=== PATIENT | female | born 1965 | race Hispanic/Latino ===

== ENCOUNTER 2023-06-22 10:07 | Observation (INO) | payer OTHER ==
[2023-06-17 18:35] VITALS: BP 131/74; PULSE 83; RESP 18
[~2023-06-22] VITALS: Ht 152.4 cm; Wt 85.0 kg
[~2023-06-22 10:07] MED LIST: CEPH500C2 PO; PIOG15TA66 PO; SILV50CR31 TP; SITA100T12 PO
[2023-06-29] VITALS (27 sets, daily range): BP systolic 110–147; BP diastolic 54–79; PULSE 66–116; RESP 15–20; O2SAT 95
[2023-06-29] MEDS ORDERED: LACTATED RINGERS 1000ML 0 ML IV ONE (05:59)
[2023-06-29] MEDS ORDERED: CEFAZOLIN SODIUM 2 GM VIAL ONE (05:59)
[2023-06-29] MEDS ORDERED: 0.9%NACL 1000ML 1,000 ML IV ONE (06:05)
[2023-06-29] MEDS ORDERED: OMEP40CA21 PO (06:17)
[2023-06-29] MEDS ORDERED: METF-527 PO (06:17)
[2023-06-29] MEDS ORDERED: ACET-66 PO (06:17)
[2023-06-29] MEDS ORDERED: IBUP-2077 PO (06:17)
[2023-06-29] MEDS ORDERED: ATOR40TA71 PO (06:17)
[2023-06-29] MEDS ORDERED: VITAMIN B12 PO (06:17)
[2023-06-29] MEDS ORDERED: GLIM4TAB36 PO (06:17)
[2023-06-29] MEDS ORDERED: 0.9%NACL 100ML 48.45 ML, ROPIVACAINE 0.5% 5MG/ML 30ML 246.25 MG, KETOROLAC TROMETHAMINE... IV PRN ×5 (09:00)
[2023-06-29] MEDS ORDERED: FENTANYL CITRATE PF 50 MCG/1 ML 5ML AMP IV ONE ×3 (10:21→13:10)
[2023-06-29] MEDS ORDERED: SUCCINYLCHOLINE CHLORIDE 20 MG/ML 10 ML VIAL ONE ×2 (10:22→12:49)
[2023-06-29] MEDS ORDERED: LIDOCAINE PF 100MG/5ML (2%) SYRINGE 5ML ONE (10:22)
[2023-06-29] MEDS ORDERED: ROCURONIUM 10MG/1ML SYR 10 MG/ML ML ONE ×2 (10:23→12:17)
[2023-06-29] MEDS ORDERED: ONDANSETRON 4MG INJ ONE (10:23)
[2023-06-29] MEDS ORDERED: PROPOFOL 10 MG/ML 20ML VIAL IV ONE ×2 (10:23→12:08)
[2023-06-29] MEDS ORDERED: DEXAMETHASONE SOD PHOSPHATE 10MG/ML 1ML VIAL ONE (10:23)
[2023-06-29] MEDS ORDERED: NEOSTIGMINE 5MG/5ML SYR IV ONE (10:23)
[2023-06-29] MEDS ORDERED: GLYCOPYRROLATE 1 MG/5 ML SYRINGE ONE (10:23)
[2023-06-29] MEDS ORDERED: CEFAZOLIN SODIUM 2 GM VIAL IVPB ONE ×2 (10:41→11:42)
[2023-06-29] MEDS ORDERED: GENTAMICIN SULFATE 80 MG/2 ML VIAL IM ONE (10:42)
[2023-06-29] MEDS ORDERED: DEXMEDETOMIDINE HCL 200 MCG/2 ML VIAL IV ONE (11:26)
[2023-06-29] MEDS ORDERED: KETAMINE 50MG/ML SYRINGE 50 MG/ML DISP.SYRIN ONE (11:27)
[2023-06-29] MEDS ORDERED: MIDAZOLAM HCL 1 MG/ML 5ML VIAL ONE (11:30)
[2023-06-29] MEDS ORDERED: TRANEXAMIC ACID 1000MG/10ML IV ONE (11:43)
[2023-06-29] MEDS ORDERED: ESMOLOL HCL 10 MG/ML 10 ML VIAL ONE (12:09)
[2023-06-29] MEDS ORDERED: HYDROMORPHONE 1 MG INJ ONE (12:18)
[2023-06-29] MEDS ORDERED: HYDROMORPHONE PCA 10 MG/50 ML 50 ML IV PRN (15:30)
[2023-06-29] MEDS ORDERED: DIPHENOXYLATE HCL/ATROPINE 2.5/0.025 MG TAB PO PRN (15:30)
[2023-06-29] MEDS ORDERED: BENZOCAINE/MENTH/CETYLPYRD CL 1 EACH LOZENGE MM PRN (15:30)
[2023-06-29] MEDS ORDERED: ONDANSETRON 4MG INJ IVP PRN (15:30)
[2023-06-29] MEDS ORDERED: ACETAMINOPHEN 325 MG TAB PO PRN ×2 (15:30)
[2023-06-29] MEDS ORDERED: TRAMADOL HCL 50 MG TABLET PO PRN (15:30)
[2023-06-29] MEDS ORDERED: CEFAZOLIN SODIUM 2 GM VIAL IVPB SCH (15:30)
[2023-06-29] MEDS ORDERED: DiphenhydrAMINE HCL 50 MG/ML VIAL IM PRN (15:30)
[2023-06-29] MEDS ORDERED: DIPHENHYDRAMINE HCL 25 MG CAPSULE PO PRN ×2 (15:30)
[2023-06-29] MEDS ORDERED: MAG/ALUM/SIMETH 30 ML UDCUP PO PRN (15:30)
[2023-06-29] MEDS: 0.9%NACL 1000ML 1,000 ML IV SCH (16:32)
[2023-06-29] MEDS: INSULIN HUMULIN R 100 UNIT/ML 3ML SQ SCH ×2 (16:35→20:48)
[2023-06-29] MEDS ORDERED: COMPOUND IV REFRIGERATED 1 EACH MISC ONE (16:53)
[2023-06-29] MEDS: CEFAZOLIN SODIUM 3 GM in DEXTROSE 5%-WATER 100 ML IVPB SCH (16:56)
[2023-06-29] MEDS: ATORVASTATIN 40 MG TABLET PO SCH (20:48)
[2023-06-29] MEDS: PANTOPRAZOLE 40 MG TAB DR PO SCH (20:50)
[2023-06-29] MEDS ORDERED: NON-FORMULARY MEDICATION 1 EACH (Omeprazole 40 MG) PO SCH (21:00)
[2023-06-29] MEDS ORDERED: COMPOUND IV REFRIGERATED 1 EACH IVSOLN MISC PRN (23:30)
[2023-06-30] VITALS (7 sets, daily range): BP systolic 108–158; BP diastolic 68–86; PULSE 84–127; RESP 17–20; O2SAT 97
[2023-06-30] MEDS: CEFAZOLIN SODIUM 3 GM in DEXTROSE 5%-WATER 100 ML IVPB SCH ×2 (00:03→10:38)
[2023-06-30] MEDS: 0.9%NACL 1000ML 1,000 ML IV SCH ×3 (00:03→21:23)
[2023-06-30 03:28] LABS: HEMATOCRIT 36.8 % (36-48); MEAN CORPUSCULAR HEMOGLOBIN 30.6 pg (27.0-33.0); MEAN CORPUSCULAR HGB CONC 34.2 g/dL (32.0-36.0); MEAN CORPUSCULAR VOLUME 89.3 fL (79-99); RED BLOOD CELL COUNT(AUTO) 4.12 MIL/uL (4.00-5.50); WHITE BLOOD COUNT (AUTO) 10.2 K/uL (4.8-10.8)
[2023-06-30 03:36] LABS: CREATININE 0.6 mg/dL (0.5-1.5); POTASSIUM 3.5 mmol/L (3.5-5.1)
[2023-06-30 03:37] LABS: INR 0.94 (0.85-1.15); PROTHROMBIN TIME 10.9 SEC (9.6-11.6)
[2023-06-30 03:47] LABS: HEMOGLOBIN A1C 9.5 % (4.0-6.0)
[2023-06-30] MEDS: INSULIN HUMULIN R 100 UNIT/ML 3ML SQ SCH ×4 (05:53→20:28)
[2023-06-30] MEDS ORDERED: LACTULOSE 20 GM/30 ML UDCUP PO PRN (07:30)
[2023-06-30] MEDS: PANTOPRAZOLE 40 MG TAB DR PO SCH ×2 (08:41→20:24)
[2023-06-30] MEDS: RIVAROXABAN 10 MG TABLET PO SCH (08:42)
[2023-06-30] MEDS: LACTULOSE 20 GM/30 ML UDCUP PO PRN ×2 (09:12→16:07)
[2023-06-30] MEDS: ATORVASTATIN 40 MG TABLET PO SCH (20:24)
[2023-07-01] VITALS (9 sets, daily range): BP systolic 123–169; BP diastolic 68–90; PULSE 93–127; RESP 19–20; O2SAT 98–99
[2023-07-01] MEDS: LACTULOSE 20 GM/30 ML UDCUP PO PRN (00:23)
[2023-07-01] MEDS: ACETAMINOPHEN 325 MG TAB PO PRN ×4 (00:23→21:15)
[2023-07-01 05:17] LABS: HEMATOCRIT 35.3 % (36-48); MEAN CORPUSCULAR HGB CONC 34.3 g/dL (32.0-36.0); MEAN CORPUSCULAR VOLUME 90.5 fL (79-99); RED BLOOD CELL COUNT(AUTO) 3.9 MIL/uL (4.00-5.50); RED CELL DISTRIBUTION WIDTH 12.7 % (11.0-15.5); WHITE BLOOD COUNT (AUTO) 7.2 K/uL (4.8-10.8)
[2023-07-01 05:30] LABS: CREATININE 0.5 mg/dL (0.5-1.5); POTASSIUM 3.3 mmol/L (3.5-5.1)
[2023-07-01] MEDS: INSULIN HUMULIN R 100 UNIT/ML 3ML SQ SCH ×4 (05:58→21:12)
[2023-07-01] MEDS ORDERED: PEG 3350/NA SULF,BICARB,CL/KCL 4000 ML SOLN PO ONE (07:30)
[2023-07-01] MEDS: 0.9%NACL 1000ML 1,000 ML IV SCH ×2 (07:30→17:30)
[2023-07-01] MEDS: PANTOPRAZOLE 40 MG TAB DR PO SCH ×2 (10:19→21:10)
[2023-07-01] MEDS: RIVAROXABAN 10 MG TABLET PO SCH (10:19)
[2023-07-01] MEDS: ATORVASTATIN 40 MG TABLET PO SCH (21:10)
[2023-07-02] MEDS: 0.9%NACL 1000ML 1,000 ML IV SCH ×2 (03:30→13:30)
[2023-07-02 04:00] VITALS: BP 152/78; PULSE 106; RESP 19
[2023-07-02 05:41] LABS: BASOPHILS # (AUTO) 0.05 K/uL (0.00-0.20); BASOPHILS % (AUTO) 0.8 % (0.0-5.0); EOSINOPHILS # (AUTO) 0.35 K/uL (0.00-0.70); EOSINOPHILS % (AUTO) 5.7 % (0.0-8.0); HEMATOCRIT 29.8 % (36-48); IMMATURE GRANULOCYTE ABSOLUTE 0.02 K/uL (0-1); LYMPHOCYTES # (AUTO) 1.4 K/uL (1.0-4.8); LYMPHOCYTES % (AUTO) 23.6 % (21.0-51.0); MEAN CORPUSCULAR HEMOGLOBIN 30.7 pg (27.0-33.0); MEAN CORPUSCULAR HGB CONC 35.2 g/dL (32.0-36.0); MEAN CORPUSCULAR VOLUME 87.1 fL (79-99); MONOCYTES # (AUTO) 0.5 K/uL (0.1-1.0); MONOCYTES % (AUTO) 8.7 % (3.0-13.0); NEUTROPHILS # (AUTO) 3.7 K/uL (1.8-7.7); NEUTROPHILS % (AUTO) 60.9 % (40.0-77.0); PLATELET COUNT (AUTO) 192 K/uL (130-400); RED BLOOD CELL COUNT(AUTO) 3.42 MIL/uL (4.00-5.50); RED CELL DISTRIBUTION WIDTH 12.7 % (11.0-15.5); WHITE BLOOD COUNT (AUTO) 6.1 K/uL (4.8-10.8)
[2023-07-02 05:51] LABS: CREATININE 0.5 mg/dL (0.5-1.5); POTASSIUM 3.3 mmol/L (3.5-5.1)
[2023-07-02] MEDS: INSULIN HUMULIN R 100 UNIT/ML 3ML SQ SCH ×2 (06:35→11:23)
[2023-07-02] MEDS: LACTULOSE 20 GM/30 ML UDCUP PO PRN (06:36)
[2023-07-02] MEDS ORDERED: BISACODYL 5 MG TABLET.DR PO SCH (08:00)
[2023-07-02 08:14] VITALS: BP 127/75; PULSE 99; RESP 17
[2023-07-02 08:15] VITALS: O2SAT 98
[2023-07-02] MEDS: RIVAROXABAN 10 MG TABLET PO SCH (10:00)
[2023-07-02] MEDS ORDERED: ACETAMINOPHEN WITH CODEINE 1 TAB TAB PO PRN ×2 (10:00)
[2023-07-02] MEDS: PANTOPRAZOLE 40 MG TAB DR PO SCH (10:00)
[2023-07-02] MEDS ORDERED: METHYLNALTREXONE BROMIDE 12 MG/0.6 ML VIAL SQ SCH (11:30)
[2023-07-02 11:34] VITALS: BP 126/54; PULSE 88; RESP 18
[2023-07-02] MEDS ORDERED: POLYETHYLENE GLYCOL 3350 17 GM POWD.PACK PO ONE (11:50)
[2023-07-02] MEDS: ACETAMINOPHEN 325 MG TAB PO PRN (15:44)
[2023-07-02] MEDS ORDERED: POLYETHYLENE GLYCOL 3350 17 GM POWD.PACK PO SCH (21:00)
== END 2023-07-02 16:10 ==
LOC: EDSTATUS 10:14 → DAHIP 06-29 05:00 → 4BH 06-29 14:55
PROVIDERS: ADMIT Orthopaedic Surgery; ATTEND Orthopaedic Surgery
DX: M17.12 Unilateral primary osteoarthritis, left knee (principal); I10 Essential (primary) hypertension; E11.9 Type 2 diabetes mellitus without complications; E66.01 Morbid (severe) obesity due to excess calories; E78.5 Hyperlipidemia, unspecified; D64.89 Other specified anemias; Z68.36 Body mass index [BMI] 36.0-36.9, adult; Z96.652 Presence of left artificial knee joint; Z98.891 History of uterine scar from previous surgery; Z79.899 Other long term (current) drug therapy
CPT/HCPCS: 87641; 27447; 96376; 96372 ×4; 96365; 96366 ×5; 82948 ×15; 97161; 97116 ×6; 96368; 83036; 80048 ×3; 85027 ×2; 85610; 36415 ×3; 97530 ×5; 85025; G0378 ×69; G0379; A4510 ×2; A4663; J7120; A4215 ×2; A4649 ×4; J3010 ×3; J0690 ×4; J1170 ×2; J3490 ×5; J1100; J2710; J0330 ×2; J7030 ×2; J2001; J2250; J1580; J7060; J2704 ×2; J2405; J1815 ×10; A6223; C1763 ×2; C1776; A4223; A4222; A4221; A6450; A4600 ×2; J2212; 96367